=== PATIENT | male | born 1965 | race Caucasian/White ===

== ENCOUNTER 2022-10-08 13:32 | Emergency (ER) | payer BC ==
[~2022-10-08] VITALS: Ht 175.3 cm; Wt 84.8 kg
[2022-10-08 15:17] VITALS: BP 130/91
[2022-10-08] MEDS ORDERED: IBUP-2213 PO (15:28)
[2022-10-08] MEDS ORDERED: TAMS0.4C96 PO (15:28)
[2022-10-08 15:42] VITALS: BP 130/91
--- NOTE | 2022-10-08 15:43 | NUR ---
Patient discharged with v/s stable. Written and verbal after care instructions given and explained. Patient alert, oriented and verbalized understanding of instructions. Ambulatory with steady gait. All questions addressed prior to discharge. ID band removed. Patient advised to follow up with PMD. Rx of IBUPROFEN AND TAMSULOSIN given. Patient educated on indication of medication including possible reaction and side effects. Opportunity to ask questions provided and answered.
[2022-10-08 16:58] LABS: APPEARANCE,URINE CLEAR (CLEAR); BILIRUBIN,URINE NEGATIVE (NEGATIVE); BLOOD, URINE 3+ (NEGATIVE); COLOR,URINE YELLOW (YELLOW); LEUKOCYTE ESTERASE ,URINE NEGATIVE (NEGATIVE); NITRITE, URINE NEGATIVE (NEGATIVE); UGLUCOSE NEGATIVE (NEGATIVE)
[2022-10-08 17:23] LABS: RBC,URINE 11-20 (MOD) /HPF (0-5); WBC,URINE 0-5 /HPF (0-5)
== END 2022-10-08 15:42 | disposition home or self-care (01) ==
LOC: MED 13:32
DX: R10.9 Unspecified abdominal pain (principal); R30.0 Dysuria
CPT/HCPCS: 81001; 99283